=== PATIENT | female | born 1990 | race American Indian/Alaskan Native ===

== ENCOUNTER 2021-01-30 14:22 | Outpatient (CLI) | payer MEDICAID ==
[2021-01-30 15:56] LABS: Hematocrit 32.9 % (30.3-42.9); Hemoglobin 11.4 gm/dl (10.1-14.3); Mean Corpuscular HGB Conc 35 % (30-34); Mean Corpuscular Volume 88 fl (79-97); Platelet Count 261 K/mm3 (140-440); Red Blood Count 3.73 M/mm3 (3.65-5.03); Red Cell Distribution Width 13.5 % (13.2-15.2)
[2021-01-30 16:18] LABS: Bacteria,Urine 4+ /HPF (Negative); Bilirubin,Urine NEG (Negative); Blood,Urine NEG (Negative); Color,Urine Yellow (Yellow); Mucus,Urine FEW /HPF; Protein,Urine <15 mg/dL mg/dL (Negative); Urobilinogen,Urine < 2.0 mg/dL (<2.0)
[2021-01-30 16:19] LABS: Alanine Aminotransferase 10 units/L (7-56); Uric Acid 3.9 mg/dL (3.5-7.6)
[2021-01-30] MEDS ORDERED: LACTATED RINGERS 500 ML IV ONE (16:30)
[2021-01-30 16:54] VITALS: BP 151/87
[2021-01-30] MEDS ORDERED: ACETAMINOPHEN 500 MG TAB PO ONE (17:00)
== END 2021-01-30 17:13 | disposition home or self-care (01) ==
LOC: TRG 14:22 → APU 14:23 → TRG 17:13
PROVIDERS: ATTEND Obstetrics & Gynecology
DX: O13.2 Gestational [pregnancy-induced] hypertension without significant proteinuria, second trimester (principal); Z3A.24 24 weeks gestation of pregnancy
CPT/HCPCS: 36415; 59025; 81001; 82565; 83615; 84450; 84460; 84550; 85027

== ENCOUNTER 2021-05-17 05:31 | Inpatient (IN) | payer MEDICAID ==
[2021-05-17] MEDS ORDERED: LACTATED RINGERS 2,000 ML ONE (05:53)
[2021-05-17] MEDS ORDERED: BICITRA ORAL LIQD 30ML PO ONE (06:31)
[2021-05-17] MEDS ORDERED: FAMOTIDINE 20 MG/2 ML INJ IV ONE (06:31)
[2021-05-17] MEDS ORDERED: METOCLOPRAMIDE 10 MG/2 ML INJ IV ONE (06:31)
[2021-05-17] MEDS ORDERED: LACTATED RINGERS 1,000 ML IV SCH (06:45)
[2021-05-17] MEDS ORDERED: ceFAZolin/Water 2 GM/20 ML 2 GM/20 ML SYRINGE IV NR (07:00)
[2021-05-17] MEDS ORDERED: OXYTOCIN DRIP 30 UNITS/500 ML BAG IV SCH ×2 (07:00→13:00)
[2021-05-17 07:19] LABS: Basophils # (Auto) 0.1 K/mm3 (0.0-0.1); Basophils % (Auto) 0.6 % (0.0-1.8); Eosinophils # (Auto) 0.2 K/mm3 (0.0-0.4); Eosinophils % (Auto) 1.3 % (0.0-4.3); Hematocrit 34.6 % (30.3-42.9); Hemoglobin 11.2 gm/dl (10.1-14.3); Lymphocytes # (Auto) 2.4 K/mm3 (1.2-5.4); Lymphocytes % (Auto) 17.7 % (13.4-35.0); Mean Corpuscular HGB Conc 33 % (30-34); Mean Corpuscular Volume 87 fl (79-97); Monocytes # (Auto) 1.1 K/mm3 (0.0-0.8); Platelet Count 268 K/mm3 (140-440); Red Blood Count 3.98 M/mm3 (3.65-5.03); Red Cell Distribution Width 14.6 % (13.2-15.2)
--- NOTE | 2021-05-17 07:32 | History and Physical Report ---
History of Present Illness Date of examination: 05/17/21 Date of admission: 05/17/21 05:31 Chief complaint: I'm here for my History of present illness: Pt is a 31 year old who presents for elective repeat at [facility] with EDC 05/20/2021. Pt has a history of PE after her second and has been on Lovenox for the duration of this . Her was also complicated by hypertension. She had an abnormal quad screen with increased risk for trisomy 18, but normal subsequent testing. Past History Past Medical History: hypertension, deep vein thrombosis Past Surgical History: section Social history: - Obstetrical History Expected Date of Delivery: 05/21/21 Actual Gestation: 39 Week(s) 3 Day(s) : 3 Para: 2 Medications and Allergies Allergies Allergy/AdvReac Type Severity Reaction Status Date / Time No Known Allergies Allergy Unverified 01/30/21 15:46 Active Meds: Active Medications Lactated Ringer's (Lactated Ringers) 1,000 mls @ 2,250 mls/hr IV PREOP STEVO Stop: 05/18/21 07:12 Oxytocin/Sodium Chloride (Pitocin/Ns 30 Unit/500ml) 30 units in 500 mls @ 0 mls/hr IV TITR STEVO; Protocol Cefazolin Sodium (Ancef/Sterile Water 2 Gm/20 Ml) 2 gm in 20 mls @ 80 mls/hr IV PREOP NR; Protocol Stop: 05/17/21 23:59 Review of Systems All systems: negative Genitourinary: other (vaginal pressure) - Vital Signs Vital signs: Vital Signs Pulse BP 103 H 132/62 05/17/21 06:17 05/17/21 06:17 Temp Pulse Resp BP Pulse Ox 94 H 137/66 98 05/17/21 06:49 05/17/21 06:49 05/17/21 06:56 - Physical Exam Breasts: Positive: deferred Cardiovascular: Regular rate, Normal S1, Normal S2 Lungs: Positive: Clear to auscultation, Normal air movement Abdomen: Positive: normal appearance, soft, normal bowel sounds. Negative: distention, tenderness Vulva: both: normal Vagina: Positive: normal moisture. Negative: discharge Cervix: Negative: lesion, discharge Uterus: Positive: normal size, normal contour Adnexa: both: normal Anus/Rectum: Positive: normal perianal skin, heme negative. Negative: rectal mass, hemorrhoids Extremities: Deep Tendon Reflex Grade: Normal +2 - Obstetrical Cervical Dilatation: 0 Cervical Effacement Percentage: 0 Results Result Diagrams: 05/17/21 06:33 Abnormal lab results 05/17/21 Range/Units 06:33 WBC 13.7 H (4.5-11.0) K/mm3 Beltrami % (Auto) 8.0 H (0.0-7.3) % Beltrami # (Auto) 1.1 H (0.0-0.8) K/mm3 Seg Neutrophils % 72.4 H (40.0-70.0) % Seg Neutrophils # 9.9 H (1.8-7.7) K/mm3 All other labs normal. Assessment and Plan IUP at 39.3 weeks here for elective repeat c/s. Admit for same. Will proceed with surgery as planned
--- NOTE | 2021-05-17 07:42 | Anesthesia Day of Surgery ---
Anesthesia Day of Surgery - Day of Surgery Patient Examined: Yes Patient H&P Reviewed: Yes Patient is NPO: Yes Beta Blockers: Yes (last taken 05/16/21)
--- NOTE | 2021-05-17 07:45 | Anesthesia Consultation ---
Anesthesia Consult and Med Hx Date of service: 05/17/21 - Airway Anesthetic Teeth Evaluation: Poor ROM Head & Neck: Adequate Mental/Hyoid Distance: Adequate Mallampati Class: Class II Intubation Access Assessment: Good - Pulmonary Exam CTA: Yes - Cardiac Exam Cardiac Exam: RRR - Pre-Operative Health Status ASA Pre-Surgery Classification: ASA3 Proposed Anesthetic Plan: Spinal - Pulmonary Hx Smoking: No Hx Asthma: No Hx Respiratory Symptoms: No SOB: No COPD: No Home Oxygen Therapy: No Hx Pneumonia: No Hx Sleep Apnea: No - Cardiovascular System Hx Hypertension: Yes Hx Coronary Artery Disease: No Hx Heart Attack/AMI: No Hx Angina: No Hx Percutaneous Transluminal Coronary Angioplasty (PTCA): No Hx Cardia Arrhythmia: No Hx Pacemaker: No Hx Internal Defibrillator: No Hx Valvular Heart Disease: No Hx Heart Murmur: No Hx Peripheral Vascular Disease: No - Central Nervous System Hx Neuromuscular Disorder: No Hx Seizures: No CVA: No Hx Back Pain: Yes Hx Psychiatric Problems: No - Gastrointestinal Hx Ulcer: No Hx Gastroesophageal Reflux Disease: No - Endocrine Hx Renal Disease: No Hx End Stage Renal Disease: No Hx Cirrhosis: No Hx Liver Disease: No Hx Insulin Dependent Diabetes: No Hx Non-Insulin Dependent Diabetes: No Hx Thyroid Disease: No Hx Hypothyroidism: No Hx Hyperthyroidism: No - Hematic Hx Anemia: No Hx Sickle Cell Disease: No - Other Systems Hx Alcohol Use: No Hx Substance Use: No Hx Cancer: No Hx Obesity: Yes - Additional Comments Anesthesia Medical History Comments: HISTORY OF DVTs. LOVINOX STOP 24 HRS AGO
[2021-05-17] MEDS ORDERED: ceFAZolin/STERILE WATER 2 GM/20 ML SYRINGE IV ONE (08:06)
[2021-05-17] MEDS ORDERED: ONDANSETRON 4 MG/2 ML INJ ONE (08:32)
[2021-05-17] MEDS ORDERED: ceFAZolin 1 GM VIAL ONE (08:32)
[2021-05-17] MEDS ORDERED: BUPIVACAINE/PF (0.25%) 2.5 MG/ML 30 ML VIAL INFILTRATI ONE ×2 (09:26)
[2021-05-17] MEDS ORDERED: dexAMETHasone 20 MG/5 ML VIAL ONE (09:26)
--- NOTE | 2021-05-17 09:27 | Procedure Note ---
OB Delivery Note - Delivery Date of Delivery: 05/17/21 Surgeon: KEYON MCCALL Estimated blood loss: other (900) - Section Preop diagnosis: repeat Postop diagnosis: same section procedure: repeat low transverse Disposition: PACU Complications: none Narrative: see op report - Infant A at 1 minute: 8 at 5 minutes: 9 Infant Gender: Male (6 pounds 13 ounces, 3080 g)
--- NOTE | 2021-05-17 09:37 | Operative Report ---
Operative Report Operative Report: Preoperative diagnosis: Intrauterine at 39 weeks 2. Previous x2 Postoperative diagnosis: Same Procedure: Repeat low transverse section Surgeon: Dr. Brisa Foote EBL: 560 Urine output: 300 mL IV fluids: 2000 mL Findings: Viable male in the Weight 6 lbs. 13 oz. 3080 g Apgars 8 and 9. Otherwise normal pelvic anatomy Specimens: None Complications: None Procedure: The patient was admitted to the OR with IV running and in place. She was properly identified as herself. She was given spinal anesthesia in the OR without difficulty. She was placed in the dorsal supine position with a leftward tilt. A Lopez catheter was inserted. She was then prepped and draped in the normal sterile fashion. An Allis test was used to confirm adequate anesthesia. Once confirmed, the incision was made with the scalpel and carried to the underlying fascia using the scalpel and the Bovie. The fascia was incised in the midline and incision was extended bilaterally using the curved Hillman scissors. The fascia was then dissected from the underlying rectus muscles in a series of sharp and blunt dissection using the Hillman scissors. Muscles were in the in the midline sharply using Metzenbaum scissors and the perit oneum was entered into bluntly using the surgeon's fingers. A bladder blade was then placed into the incision to protect the bladder. Following this the bladder flap was created. Hysterotomy incision was then made in the scalpel. Upon uterine entry, the amniotic sac was ruptured for clear fluid. The infant was then delivered without difficulty.. His mouth and nose were suctioned on the field. The cord was clamped and cut and he was handed to the waiting NICU personnel. The uterus was then exteriorized and cleared of all clots and debris. The hysterotomy incision was then closed in a running locked fashion using 0 Vicryl. The abdomen was then copiously irrigated with warm normal saline. Attention was turned the the fallopian tubes. Each tube was identified and followed out the the fimbriated end. Each tube was grasped in the midportion and ligated in the Western style Tubal ligation. Following this the uterus was replaced into the abdominal cavity. At this point the muscles were reapproximated in the midline using individual sutures of 0 Vicryl. Following this the fascia was closed in a running fashion using 0 Vicryl. Tissue was then copiously irrigated. Retention sutures were placed in the subcutaneous fat tissue Skin was closed in a running fashion using 3-0 Monocryl. The sponge lap needle and instrument counts were correct 2. The patient tolerated the procedure well. She was taken to recovery in stable condition.
--- NOTE | 2021-05-17 09:47 | Progress Note ---
Spinal Anesthesia Block - Spinal Anesthesia Block Start Time: 07:52 Stop Time: 08:03 Performed by:: JOSE MEDEROS Procedure: Patient IDed, H&P reviewed, all questions and concerns were answered, and consent was signed. Timeout was performed at bedside. Patient in sitting position. Sterile prep and drape was performed. [3] ml of 1% lidocaine skin wheal at L[3]- L [4]. Needle introducer advanced. 25 gauge spinal needle advanced. Clear, free flowing CSF. negative blood, negative paresthesia. Spinal dose given. All needles removed. Patient tolerated procedure.
--- NOTE | 2021-05-17 09:54 | Progress Note ---
Regional Anesthesia Block - Regional Anesthesia Block Start Time: :38 Stop Time: :40 Performed By:: JOSE MEDEROS Procedure: Patient consented for TAP block for post surgical pain management. Patient identified, monitors placed, and time out performed. TAP identified bilaterally via ultrasound. Skin prepped bilaterally with [chlorhexidine] and [22g stimuplex] needle advanced to the TAP. [Marcaine 0.25% 30ml] injected under ultrasound guidance on the [left] side. [Marcaine 0.25% 30ml] injected under ultrasound guidance on the [right] side. Negative aspiration every 5mL, No change in heart rate or rhythm. Patient tolerated the procedure well. No apparent complications seen.
[2021-05-17] MEDS ORDERED: SIMETHICONE 80 MG CHEW TAB PO PRN (12:43)
[2021-05-17] MEDS ORDERED: LANOLIN/ZINC/DIMETHICONE (LANSINOH) 7 GM TP PRN (13:00)
[2021-05-17] MEDS ORDERED: ONDANSETRON 4 MG/2 ML INJ IV PRN (13:00)
[2021-05-17] MEDS ORDERED: WITCH HAZEL/ GLYCERIN PAD TP PRN (13:00)
[2021-05-17] MEDS ORDERED: NALOXONE 0.4 MG/1 ML INJ IV PRN (13:00)
[2021-05-17] MEDS ORDERED: ACETAMINOPHEN 325 MG TAB PO PRN (13:00)
[2021-05-17] MEDS: NIFEdipine XL 60 MG TAB PO SCH (13:15)
[2021-05-17] MEDS: D5W/LACTATED RINGERS 1,000 ML IV SCH ×2 (13:16→21:07)
[2021-05-17] MEDS: MORPHINE 4 MG/1 ML INJ IV PRN ×3 (13:16→22:21)
--- NOTE | 2021-05-17 15:03 | Post Anesthesia Evaluation ---
- Post Anesthesia Evaluation Patient Participated: Yes Airway Patent: Yes Stable Respiratory Function: Yes Nausea/Vomiting: No Temp > 96.8F: Yes Pain Manageable: Yes Adequeate Hydration: Yes Anesthesia Complications: No Block Receding Appropriately: Yes Patient on Ventilator: No
[2021-05-17 15:58] LABS: Amphetamine Screen,Urine Negative; Benzodiazepines Screen,Urine Negative; Cannabinoid Screen,Urine Negative; Cocaine Screen,Urine Negative; Methadone Screen,Urine Negative; Opiate Screen,Urine Negative
[2021-05-17 21:20] LABS: Hematocrit 34.3 % (30.3-42.9); Hemoglobin 11.2 gm/dl (10.1-14.3)
[2021-05-17] MEDS ORDERED: MAGNESIUM HYDROXIDE (MOM) ORAL LIQD UDC PO PRN (22:00)
[2021-05-17] MEDS: ENOXAPARIN 40 MG/0.4 ML INJ SUB-Q SCH (22:22)
[2021-05-18] MEDS: oxyCODONE /ACETAMINOPHEN 5-325MG TAB PO PRN ×4 (01:37→23:41)
[2021-05-18] MEDS: PRENATAL VIT27-FE FUMARATE-FOLIC ACID VIT TAB PO SCH (11:30)
[2021-05-18] MEDS: NIFEdipine XL 60 MG TAB PO SCH (11:30)
--- NOTE | 2021-05-18 16:28 | Progress Note ---
Subjective - Subjective Date of service: 05/18/21 Interval history: Pt is a 31 year old who presents for elective repeat at 39 [facility] with EDC 05/20/2021. Pt has a history of PE after her second and has been on Lovenox for the duration of this . Her was also complicated by hypertension. She had an abnormal quad screen with increased risk for trisomy 18, but normal subsequent testing. Patient reports: appetite normal, voiding normally, pain well controlled : doing well Objective - Vital Signs Latest vital signs: Vital Signs Temp Pulse Resp BP Pulse Ox Pulse Ox 05/18/21 08:09 97.9 F 85 18 135/72 99 05/18/21 06:04 83 99 05/18/21 06:03 87 147/87 99 05/18/21 05:30 98.0 F 95 H 20 152/91 98 05/18/21 01:37 22 05/18/21 00:21 98.1 F 87 20 132/82 94 05/17/21 22:21 20 05/17/21 20:41 98 05/17/21 20:06 98.1 F 95 H 20 117/77 97 Intake and Output 05/18/21 05/18/21 05/18/21 06:59 14:59 22:59 Intake Total 480 Output Total 700 Balance -220 Intake: Intake, Free Water 480 Output: Urine 700 Void 700 Other: Total, Output Amount 300
[2021-05-18] MEDS: ENOXAPARIN 40 MG/0.4 ML INJ SUB-Q SCH (22:14)
[2021-05-19] MEDS: oxyCODONE /ACETAMINOPHEN 5-325MG TAB PO PRN ×2 (06:18→12:14)
--- NOTE | 2021-05-19 09:06 | Discharge Summary ---
Providers - Providers Date of Admission: 05/17/21 05:31 Date of discharge: 05/19/21 Attending physician: KEYON MCCALL Primary care physician: KEYON MCCALL Hospitalization Reason for admission: section Delivery: Procedure: repeat low transverse Episiotomy: none Laceration: none Incision: normal, dry, intact complications: none Discharge diagnosis: IUP at term delivered baby: male Hospital course: unremarkable Condition at discharge: Good Disposition: 01 HOME / SELF CARE / HOMELESS Plan - Discharge Medications Prescriptions: Enoxaparin 40 mg SUB-Q QDAY@2200 #30 syringe oxyCODONE /ACETAMINOPHEN [Percocet 5/325] 1 tab PO Q4HR #40 tab NIFEdipine XL [Procardia Xl] 60 mg PO QDAY #30 tablet - Provider Discharge Summary Activity: routine, no sex for 6 weeks, no heavy lifting 4 weeks, no strenuous exercise Diet: routine Instructions: routine Additional instructions: [] Smoking cessation referral if applicable(refer to patient education folder for contact #) [] Refer to [facility] Booklet Call your doctor immediately for: * Fever > 100.5 * Heavy vaginal bleeding ( >1 pad per hour) * Severe persistent headache * Shortness of breath * Reddened, hot, painful area to leg or breast * Drainage or odor from incision. * Keep incision clean and dry at all times and follow doctor's instructions regarding bathing/showering - Follow up plan Follow up: KEYON MCCALL MD [Primary Care Provider] - 7 Days Forms: [facility] Discharge Summary, Work/School Excuse Out Patient
[2021-05-19] MEDS: NIFEdipine XL 60 MG TAB PO SCH (10:40)
[2021-05-19] MEDS: PRENATAL VIT27-FE FUMARATE-FOLIC ACID VIT TAB PO SCH ×2 (10:40→10:41)
[2021-05-19 12:29] VITALS: BP 130/80
== END 2021-05-19 13:35 | disposition home or self-care (01) | DRG 765 ==
LOC: APU 05:31 → OB 11:51
PROVIDERS: ADMIT Obstetrics & Gynecology; ATTEND Obstetrics & Gynecology
PROC: 10D00Z1 Extraction of Products of Conception, Low, Open Approach (ICD-10-PCS; principal; 2021-05-17)
PROC: 3E0T3BZ Introduction of Anesthetic Agent into Peripheral Nerves and Plexi, Percutaneous Approach (ICD-10-PCS; 2021-05-17)
DX: O34.211 Maternal care for low transverse scar from previous cesarean delivery (principal); O10.92 Unspecified pre-existing hypertension complicating childbirth; Z37.0 Single live birth; Z3A.39 39 weeks gestation of pregnancy; Z20.822 Contact with and (suspected) exposure to COVID-19
CPT/HCPCS: 36415; 80307; 85014; 85018; 85025; 86592; 86850; 86900; 86901; G0378; J3490; J7060; J7121; J0690; J1100; J1650; J2270; J2405; J2590; J2765; J7120; U0003